=== PATIENT | female | born 1970 | race African-American/Black ===

== ENCOUNTER 2019-07-11 13:16 | Emergency (ER) | payer OTHER ==
[~2019-07-11] VITALS: Ht 160 cm; Wt 108.4 kg
[~2019-07-11 13:16] MED LIST: ALBUTEROL2.5 MG/0.5 INH; BACTRIM DS TAB1 EACH PO; GLIPIZIDE 10 MG10 MG PO; IBUPROFEN; LASIX 40 MG TAB40 M2 PO; LEVAQUIN 500 M500 M2 PO; LEVEMIR SUBQ; LORTAB 5 MG/5001 TA1 PO; METFORMIN HCL500 M2 PO; MOBIC7.5 MG PO; NYSTATIN 1100000 U/M SW&SWALLOW; POTASSIUM20 PO; PREDNISONE 10 M10 MG PO; PROTONIX40 M1 PO; TYLENOL325 MG PO; ZANAFLEX4 MG PO
[2019-07-11 15:37] LABS: ABSOLUTE NEUTROPHILS 8.6 thou/uL (1.4-8.2); BASOPHILS 0.9 % (0.0-2.0); EOSINOPHILS 2.6 % (0.0-3.0); HEMATOCRIT 43.4 % (37.0-47.0); HEMOGLOBIN 14.6 gm/dL (12.0-15.0); LYMPHOCYTES 26.2 % (24.0-44.0); MCH 28.4 pg (26.0-34.0); MCHC 33.6 g/dL (28.0-37.0); MCV 84.6 fL (80.0-100.0); MONOCYTES 5.5 % (1.0-8.0); PLATELET COUNT 228 thou/uL (150-400); POLYS 64.8 % (36.0-66.0); RBC 5.12 mil/uL (4.20-5.00); RDW 13.2 % (10.5-14.5); WBC 13.2 thou/uL (4.0-11.0)
[2019-07-11 15:50] LABS: ANION GAP 9 mmol/L (7-16); BUN 9 mg/dL (7-18); CALCIUM 9.2 mg/dL (8.5-10.1); CHLORIDE 100 mmol/L (98-107); CO2 28 mmol/L (21-32); CREATININE 0.9 mg/dL (0.6-1.0); GLUCOSE 168 mg/dL (74-106); POTASSIUM 3.5 mmol/L (3.5-5.1); SODIUM 137 mmol/L (136-145)
[2019-07-11 15:58] LABS: TROPONIN-I <0.06 ng/mL (<0.06)
[2019-07-11] MEDS ORDERED: ZPAK PO (16:36)
[2019-07-11] MEDS ORDERED: GUAIFEN-CODEINE10 ML PO (16:46)
[2019-07-11 17:00] VITALS: BP 113/85
--- NOTE | 2019-07-12 15:05 | EKG ---
[address] [address] ELECTROCARDIOGRAM REPORT Name: RADHA BOOKER [id number] Admission: 07/11/19 Attend Phys: Discharge: 07/11/19 Date of : 74 Report #: [id number] THIS REPORT FOR: //name// [facility] ED Test Date: 2019-07-11 Test Time: 15:48:54 Pat Name: RADHA BOOKER Department: Room: Gender: F Electronics Technician: wil frank : 1970 Requested By: Neelima Brady Order Number: [id number] MD: Clem Trivedi Measurements Intervals [place] Rate: 102 P: 38 DC: 129 QRS: -9 QRSD: 94 T: -29 QT: 356 QTc: 464 Interpretive Statements Sinus tachycardia Consider V2 V3 reversal Left ventricular hypertrophy Unspecific ST-T wave changes Compared to ECG 09/27/2015 06:56:02 No significant changes Electronically Signed On 07-12-2019 15:04:46 [employer] by Clem Trivedi [email or web address] <ELECTRONICALLY SIGNED> By: Clem Trivedi MD 07/12/19 1504 [id number] 1548 Clem Trivedi MD /JHONNY
== END 2019-07-11 16:55 | disposition home or self-care (01) ==
LOC: ER 13:16
PROVIDERS: Emergency Medicine
DX: J40 Bronchitis, not specified as acute or chronic (principal); R04.2 Hemoptysis; I10 Essential (primary) hypertension; E11.9 Type 2 diabetes mellitus without complications; Z79.4 Long term (current) use of insulin

== ENCOUNTER → 2021-02-03 | Outpatient (CLI) | payer MEDICARE, OTHER ==
[~2021-02-03] MED LIST changes: +GUAIFEN-CODEINE10 ML PO; +ZPAK PO
== END ==
LOC: RAD 10:17
PROVIDERS: ATTEND Pediatrics
DX: R06.02 Shortness of breath (principal); J40 Bronchitis, not specified as acute or chronic

== ENCOUNTER → 2021-06-03 | Outpatient (CLI) | payer MEDICARE, OTHER | LOC: CAT 09:10 | PROVIDERS: ATTEND Pediatrics | DX: R91.8 Other nonspecific abnormal finding of lung field (principal); K80.20 Calculus of gallbladder without cholecystitis without obstruction; R06.00 Dyspnea, unspecified ==

== ENCOUNTER → 2021-07-04 | Outpatient (CLI) | payer MEDICARE, OTHER | LOC: PET 09:30 | PROVIDERS: ATTEND Pediatrics | DX: J98.4 Other disorders of lung (principal); J98.11 Atelectasis; K80.20 Calculus of gallbladder without cholecystitis without obstruction; R91.8 Other nonspecific abnormal finding of lung field ==